=== PATIENT | female | born 1995 | race Caucasian/White ===

== ENCOUNTER 2020-08-03 13:25 | Inpatient (IN) | payer OTHER ==
[~2020-08-03] VITALS: Ht 154.9 cm; Wt 45.4 kg
[2020-08-03 13:48] VITALS: BP 125/69
[2020-08-03] MEDS ORDERED: ONDANSETRON HYDR4 M1 PO (15:41)
[2020-08-03] MEDS ORDERED: LEVOTHYROXINE50 MCG PO (15:42)
[2020-08-03] MEDS ORDERED: CLONAZEPAM1 MG PO (15:43)
[2020-08-03 15:46] LABS: BASO % 0.3 % (0.0-1.0); EOS # 0.6 10*3/uL (0.0-0.4); EOS % 10.6 % (1.0-4.0); HEMATOCRIT 33.1 % (37.0-47.0); LYMPH # 1.9 10*3/uL (1.3-4.4); LYMPH % 31.5 % (27.0-41.0); MEAN CELL VOLUME 85.8 fl (81.0-99.0); MEAN CORPUSCULAR HGB 29.8 pg (27.0-31.0); MEAN CORPUSCULAR HGB CONC 34.7 g/dl (33.0-37.0); MEAN PLATELET VOLUME 8.8 fl (9.6-12.3); MONO # 0.4 10*3/uL (0.1-1.0); NEUT % 50.4 % (47.0-73.0); PLATELET COUNT AUTOMATED 230 10*3/uL (130-400); RED BLOOD COUNT 3.86 10*6/uL (4.10-5.10); RED CELL DISTRI WIDTH 11.3 % (0-14.5)
[2020-08-03 16:02] LABS: ALBUMIN 3.6 gm/dl (3.1-4.5); ALKALINE PHOSPHATASE 51 U/L (45-117); BUN 8 mg/dl (7-24); CHLORIDE 106 mmol/L (98-107); CREATININE 0.77 mg/dL (0.55-1.02); POTASSIUM 3.8 mmol/L (3.5-5.1); SGOT/AST 15 IU/L (3-35); SGPT/ALT 14 U/L (12-78); SODIUM 140 mmol/L (136-145); TOTAL PROTEIN 6.7 gm/dL (6.4-8.2)
[2020-08-03 16:03] LABS: ETHYL ALCOHOL < 3.0 mg/dl (<3)
[2020-08-03 16:34] LABS: BILIRUBIN Negative (Negative); BLOOD Negative (Negative); CLARITY Turbid (Clear); COLOR Yellow (Yellow); GLUCOSE Negative (Negative); KETONE Negative (Negative); LEUKO ESTERASE Trace (Negative); NITRITE Negative (Negative); SPECIFIC GRAVITY 1.015 (1.001-1.030); UROBILINOGEN 0.2 E.U./dl (0.0-1.0)
[2020-08-03 16:43] LABS: URINE AMPHETAMINES < 1000 (1000ng/ml); URINE BARBITURATES < 200 (200ng/ml); URINE BENZODIAZEPINES < 200 (200ng/ml); URINE CANNABINOIDS (THC) < 50 (50ng/ml); URINE COCAINE < 300 (300ng/ml); URINE METHADONE < 300 (300ng/ml); URINE OPIATES < 300 (300ng/ml)
[2020-08-03 16:45] LABS: URINE PHENCYCLIDINE < 25 (25ng/ml)
[2020-08-03 16:49] LABS: BACTERIA TRACE; PH 8.5 (4.5-8.0); RBC 0-2 rbc/hpf (0-2)
[2020-08-03 17:52] VITALS: BP 94/52
[2020-08-04 03:18] VITALS: BP 100/48
== END 2020-08-04 10:20 | disposition left against medical advice (07) | DRG 770 ==
LOC: ED 13:25 → EDHOLD 16:21
PROVIDERS: Emergency Medicine; ADMIT Internal Medicine; ATTEND Internal Medicine
DX: F11.19 Opioid abuse with unspecified opioid-induced disorder (principal); F41.9 Anxiety disorder, unspecified; E03.9 Hypothyroidism, unspecified; Z53.29 Procedure and treatment not carried out because of patient's decision for other reasons; D64.9 Anemia, unspecified; F50.9 Eating disorder, unspecified; Z72.0 Tobacco use; Z88.0 Allergy status to penicillin